=== PATIENT | female | born 1970 ===

== ENCOUNTER 2022-12-17 16:15 | Emergency (ER) | payer SELFPAY ==
[~2022-12-17] VITALS: Ht 157 cm; Wt 77.0 kg
[~2022-12-17 16:15] MED LIST: CEFD300C3 PO; SCOP1PAT10 TD
[2022-12-17 16:18] VITALS: BP 141/99
--- NOTE | 2022-12-17 16:51 | ED Neurological Problem ---
General Chief Complaint: Neurological Problems Stated Complaint: STROKE LIKE SYMPTOMS, DIZZYNESS Nursing Triage Note: PT AMB TO RM 9 WITH C/O DIZZINESS, LIGHT HEADED, FEELING WEAK AND COWORKERS SAYING SHE IS "SLOW" TODAY Source: patient, old records Exam Limitations: no limitations History of Present Illness Date Seen by Provider: Dec 17, 2022 Time Seen by Provider: 16:20 Initial Comments This 52-year-old woman presents to the emergency room accompanied by coworkers who were concerned she was having a stroke. Last known well time was 1400. Symptoms included slurring of speech, right-sided facial droop, and disequilibrium. Coworkers were saying that "she is slow today". She complains of some "dizziness." She is noted to have been seen in this emergency room on October 31 and had a thorough work-up including labs and CT imaging. She had some of the same symptoms including dizziness at that time. She was found to have sinusitis and was treated with antibiotics. Patient was initially checked in under the last name of Lisa under a different medical record number. Medical records will need to be merged. She has prior visits under her correct name. Patient is very hesitant to be evaluated in the emergency room because she has a reported bill of $15,000 from her prior visit. She is presently uninsured and cannot pay the bill. She is very fearful of incurring more catastrophic debt with additional work-up. Patient is declining care or evaluation due to these concerns. She is alert and oriented and able to engage in a conversation about these concerns in a logical manner. She is tearful about the situation. Staff noted patient was exhibiting some disequilibrium with her ambulation. Patient reports she was able to ambulate independently. Patient denies any drug or alcohol use. Allergies and Home Medications Allergies Coded Allergies: No Known Drug Allergies (Unverified , 12/17/22) Patient Home Medication List Home Medication List Reviewed: Yes Review of Systems Review of Systems Constitutional: no symptoms reported Eyes: No Symptoms Reported Ears, Nose, Mouth, Throat: no symptoms reported Respiratory: no symptoms reported Cardiovascular: no symptoms reported Gastrointestinal: no symptoms reported Genitourinary: no symptoms reported : No Musculoskeletal: no symptoms reported Skin: no symptoms reported Psychiatric/Neurological: See HPI Endocrine: No Symptoms Reported Hematologic/Lymphatic: No Symptoms Reported Past Bghcarz-Putsth-Aqquzc Hx Patient Social History Tobacco Use?: No Use of E-Cig and/or Vaping dev: No Substance use?: No Alcohol Use?: No Pt feels they are or have been: No Past Medical History Surgery/Hospitalization HX: DM, [facility] Surgeries: Yes Gallbladder Respiratory: No Cardiac: No Neurological: No : No Reproductive Disorders: No Genitourinary: No Gastrointestinal: No Musculoskeletal: No Endocrine: Yes Diabetes, Non-Insulin dep HEENT: Yes (sinusitis) Cancer: No Psychosocial: No Integumentary: No Physical Exam Vital Signs Vital Signs - First Documented 12/17/22 16:18 Temp 36.9 Pulse 108 Resp 20 B/P (MAP) 141/99 (113) Pulse Ox 94 O2 Delivery Room Air Capillary Refill : Height, Weight, BMI Height: '" Weight: lbs. oz. kg; 31.00 BMI Method: General Appearance: WD/WN, mild distress (Tearful) HEENT: PERRL/EOMI, other (Subtle right-sided facial droop with difficulty man aging saliva on the right side of the mouth.) Neck: normal inspection Respiratory: lungs clear, normal breath sounds, no respiratory distress Cardiovascular: regular rate, rhythm, no murmur Extremities: other (Mild lower extremity edema) Neurologic/Psychiatric: alert, oriented x 3, other (Tearful) Crainal Nerves: PERRL, abnormal speech (Dysarthria without aphasia), facial droop (Right-sided) Coordination/Gait: other (Disequilibrium observed by nurses during ambulation) Skin: normal color, warm/dry Physical exam, and in particular neurologic exam, was limited due to patient's refusal for further evaluation and care. Progress/Results/Core Measures Results/Orders Lab Results Laboratory Tests Test 12/17/22 16:22 Range/Units Glucometer 220 H 70-110 MG/DL My Orders Orders - ARTURO URBINA MD Ekg Tracing (12/17/22 16:18) Accucheck Stat ONCE (12/17/22 16:24) Ed Iv/Invasive Line Start (12/17/22 16:24) Vital Signs Stroke Patient Q15M (12/17/22 16:24) O2 (12/17/22 16:24) Monitor-Rhythm Ecg Trace Only (12/17/22 16:24) Dysphagia Screening Tool [id number] (12/17/22 16:24) Post Thrombolytic Adminstratio (12/17/22 16:24) Vital Signs/I&O 12/17/22 16:18 Temp 36.9 Pulse 108 Resp 20 B/P (MAP) 141/99 (113) Pulse Ox 94 O2 Delivery Room Air Blood Pressure Mean: 113 FSBG Bedside Testing Finger Stick Blood Glucose: 220 Blood Glucose Action Taken: NOTIFIED Progress Progress Note : Progress Note Patient was interviewed and examined promptly after arrival. Patient declined IV, CT scan, and blood work. She sites expense as the primary concern. I expressed my concern that she may be having a stroke or other neurologic emergency and that neurologic deficits may worsen, become permanent, or result in significant disability if a neurologic pathology remains undiagnosed and untreated. I expressed serious concern about her overall and long-term wellb eing. Patient expressed understanding and appreciated that we are trying to do our job in keeping her safe and healthy. However, she refuses to incur the financial burden of more ER work-up. She therefore elected to sign out AGAINST MEDICAL ADVICE. She ambulated from the ER freely on her own power without apparent difficulty. In my judgment, patient was a competent decision maker, fully aware of the potential consequences of her actions. We had a rather lengthy conversation and she was given multiple opportunities to change her mind regarding further evaluation and treatment. She willingly signed AMA paperwork. Initial ECG Impression Date: Dec 17, 2022 Initial ECG Impression Time: 16:23 Initial ECG Rate: 105 Initial ECG Rhythm: S.Tach Comment Sinus tachycardia with no diagnostic ST elevation or depression. No abnormal intervals. LVH noted. Departure Impression Primary Impression: Facial droop Additional Impressions: Dysarthria Disequilibrium Left against medical advice Disposition: 07 AGAINST MEDICAL ADVICE Condition: Against Medical Advice ARTURO URBINA MD Dec 17, 2022 16:51
== END 2022-12-17 16:49 | disposition left against medical advice (07) ==
LOC: ER 16:20
DX: R29.810 Facial weakness (principal); R47.1 Dysarthria and anarthria; E87.8 Other disorders of electrolyte and fluid balance, not elsewhere classified
CPT/HCPCS: 82947; 93041